=== PATIENT | male | born 1975 | race Caucasian/White ===

== ENCOUNTER → 2023-08-08 08:05 | Outpatient (REF) | payer BC, SELFPAY ==
[2023-08-08 11:25] LABS: HDL Cholesterol 47 mg/dl; LDL Cholesterol, Calculated 97 mg/dl; Total Cholesterol 164 mg/dl (50-199); Triglyceride 104 mg/dl (10-149); Very Low Density Lipoprotein 20 mg/dl (0-30)
[2023-08-08 11:58] LABS: PSA, Total - Screen 0.79 ng/ml (0.0-4.0)
[2023-08-09 16:40] LABS: % Free Testosterone 1.2 % (1.6-2.9); Free Testosterone 108 pg/mL (47-244); Sex Hormone Binding Globulin 73 nmol/L (17-56); Total Testosterone 874 ng/dL (300-890)
== END ==
LOC: HWLAB 08:05
PROVIDERS: ATTENDING PHYSICIAN Family Medicine
DX: D47.3 Essential (hemorrhagic) thrombocythemia (principal); Z76.89 Persons encountering health services in other specified circumstances; M25.562 Pain in left knee; G89.29 Other chronic pain; D18.03 Hemangioma of intra-abdominal structures; R53.83 Other fatigue; N52.9 Male erectile dysfunction, unspecified; Z12.5 Encounter for screening for malignant neoplasm of prostate
CPT/HCPCS: 36415; 80061; 84270; 84402; 84403; G0103

== ENCOUNTER → 2023-10-04 06:38 | Day surgery (SDC) | payer BC, SELFPAY | LOC: GI 06:38 | PROVIDERS: ATTENDING PHYSICIAN Internal Medicine Gastroenterology | DX: Z12.11 Encounter for screening for malignant neoplasm of colon (principal); Z83.719 Family history of colon polyps, unspecified; K57.30 Diverticulosis of large intestine without perforation or abscess without bleeding; K64.8 Other hemorrhoids | CPT/HCPCS: G0105 ==

== ENCOUNTER → 2024-03-14 08:37 | Outpatient (REF) | payer BC, SELFPAY | LOC: RAD 08:37 | PROVIDERS: ATTENDING PHYSICIAN Physician Assistant; FAMILY PHYSICIAN Family Medicine | DX: R50.9 Fever, unspecified (principal); R05.1 Acute cough | CPT/HCPCS: 71046 ==

== ENCOUNTER 2025-02-07 05:45 | Day surgery (SDC) | payer BC, SELFPAY ==
[2025-01-31 12:02] LABS: ALT (SGPT) 50 U/L (0-50); AST (SGOT) 29 U/L (17-59); Albumin 5.0 g/dl (3.5-5.0); Alkaline Phosphatase 58 U/L (38-126); Blood Urea Nitrogen 22 mg/dl (9-20); Calcium 10.0 mg/dl (8.4-10.2); Carbon Dioxide 28 mmol/L (22-30); Chloride 100 mmol/L (98-107); Glucose 86 mg/dl (70-99); Potassium 4.8 mmol/L (3.5-5.1); Sodium 136 mmol/L (135-145); Total Protein 7.7 g/dl (6.3-8.2); eGFR > 60.00
[2025-01-31 13:52] VITALS: BMI 27.9
[2025-02-07] VITALS (7 sets, daily range): BP systolic 107–137; BP diastolic 73–86; BMI 27.9
[2025-02-07] MEDS: TYLENOL 1000 MG PO (06:25)
[2025-02-07] MEDS: CELEBREX 200 MG PO (06:25)
[2025-02-07] MEDS: NORMOSOL-R/PLASMALYTE-A 1000 IV (06:26)
[2025-02-07] MEDS: ROXICODONE 5 MG PO (08:37)
== END 2025-02-07 08:50 | disposition home or self-care (01) ==
LOC: SDS 05:45
PROVIDERS: ATTENDING PHYSICIAN Specialist; FAMILY PHYSICIAN Family Medicine
DX: S83.242A Other tear of medial meniscus, current injury, left knee, initial encounter (principal); X58.XXXA Exposure to other specified factors, initial encounter; M25.562 Pain in left knee
CPT/HCPCS: 29881; 80053